=== PATIENT | female | born 1990 ===

== ENCOUNTER 2016-12-06 22:27 | Emergency (ER) | payer MEDICAID ==
[~2016-12-06] VITALS: Ht 157.5 cm; Wt 63.0 kg
[2016-12-07 01:18] VITALS: BP 111/57
== END 2016-12-07 01:18 | disposition home or self-care (01) ==
LOC: ED 22:27
DX: O03.38 Urinary tract infection following incomplete spontaneous abortion (principal); Z3A.14 14 weeks gestation of pregnancy
CPT/HCPCS: Q0162